=== PATIENT | female | born 1955 | race African-American/Black ===

== ENCOUNTER 2017-03-10 09:51 | Inpatient (IN) | payer MEDICARE, MEDICAID ==
[2017-03-10] MEDS ORDERED: Proparacaine 0.5% Opth 15 ML BOT ONE (10:12)
[2017-03-10] MEDS ORDERED: Magnesium Sulfate 2 GM/100 ML BAG ONE (10:13)
[2017-03-10] MEDS ORDERED: methylPREDNISolone Sod Succ/PF 125 MG/2 ML VIAL ONE (10:45)
[2017-03-10] MEDS ORDERED: Ketorolac Tromethamine 30 MG/ML VIAL ONE (10:45)
[2017-03-10] MEDS ORDERED: Ketorolac Tromethamine 30 MG/ML VIAL IVP PRN (15:20)
[2017-03-10] MEDS ORDERED: Artificial Tears 18 DROP/0.9 ML EA EYE PRN (15:20)
[2017-03-10] MEDS ORDERED: Diabetic Tussin 200 MG/10 ML UDCUP PO PRN (15:20)
[2017-03-10] MEDS ORDERED: Eucerin (Mineral Oil/Petrolatum,White) 30 gm Jar TOP PRN (15:20)
[2017-03-10] MEDS ORDERED: Sodium Chloride 0.65% Nasal 44 ML BOT EA NARE PRN (15:20)
[2017-03-10] MEDS ORDERED: Ondansetron HCl/PF 4 MG/2 ML Vial IVP PRN (15:20)
[2017-03-10] MEDS ORDERED: Ondansetron ODT 4 MG TAB PO PRN (15:20)
[2017-03-10] MEDS ORDERED: Zolpidem Tartrate 5 MG TAB PO PRN (15:20)
[2017-03-10] MEDS ORDERED: Loperamide HCl 2 MG CAP PO PRN (15:20)
[2017-03-10] MEDS ORDERED: Mag-Al 1200 mg/1200 mg/30 ML UDCUP PO PRN (15:20)
[2017-03-10] MEDS ORDERED: Loratadine 10 MG TAB PO PRN (15:20)
[2017-03-10] MEDS ORDERED: Senokot 8.6 MG TAB PO PRN (15:20)
[2017-03-10] MEDS ORDERED: Dextrose 50% Abboject 50 ML SYRINGE SLOW IVP PRN (15:26)
[2017-03-10] MEDS ORDERED: HumaLOG 300 UNITS/3 ML VIAL SC PRN ×2 (15:26)
[2017-03-10] MEDS ORDERED: Dextrose 5% in Water 1,000 ML IV PRN (15:26)
[2017-03-10 16:00] VITALS: BMI 28.5
--- NOTE | 2017-03-10 16:01 | HP ---
PRIMARY CARE PHYSICIAN: Rodger Mckeon M.D. REASON FOR ADMISSION: Intractable headache. HISTORY OF PRESENT ILLNESS: A 62-year-old -Honduran female with a history of hypertension an d glaucoma, who initially went to [facility] for evaluation of headache. The patient reports that her headache is diffuse in nature, 7/10 in intensity. The patient feels th at this headache is not the worst headache in her life. She does have a history of migraine and she feels as if migraine headache, but at home her home medication was not helping, and that is why she decided to come to emergency room. At this time, she reports more frontal headache which was start ed yesterday, normally it gets better within a day, but it was not improving and that is why she dec ided to come to emergency room for evaluation. She denies any fever. She denies any neck pain. Sh e denies any trauma. She denies any focal motor symptoms. She denies any blurred vision or diplopi a. She denies any photophobia. She denies any vomiting. 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 S he denies any projectile vomiting. At [facility], they tried to do lumbar puncture, but it was not successful and subsequent ly this patient was sent to our emergency room for evaluation. The patient had lumbar puncture done and subsequently she was admitted to medical floor. In the emergency room, the patient was given initially at [facility] with Benadryl, Najma n, IV fluid and in our emergency room, the patient was given Solu-Medrol 125 mg, Toradol 15 mg, IV f luid, and magnesium sulfate 2. When I saw this patient at that time, the patient was feeling little bit better. Her headache was improving, but it was not completely subsided. REVIEW OF SYSTEMS: The following complete review of systems was negative, unless otherwise mentione d in the HPI or below: Constitutional: Weight loss or gain, ability to conduct usual activities. Skin: Rash, itching. Eyes: Double vision, pain. ENT/Mouth: Nose bleeding, neck stiffness, pain, tenderness. Cardiovascular: Palpitations, dyspnea on exertion, orthopnea. Respiratory: Shortness of breath, wheezing, cough, hemoptysis, fever or night sweats. Gastrointestinal: Poor appetite, abdominal pain, heartburn, nausea, vomiting, constipation, or diar kameron. Genitourinary: Urgency, frequency, dysuria, nocturia. Musculoskeletal: Pain, swelling. Neurologic/Psychiatric: Anxiety, depression. Allergy/Immunologic: Skin rash, bleeding tendency. Please see my HPI for pertinent positives and negatives. All other review of system reviewed and ne gative except as mentioned in the HPI. PAST MEDICAL HISTORY: Hypertension, dyslipidemia, obesity, diabetes type 2, glaucoma, and osteoarth ritis. PAST SURGICAL HISTORY: , bilateral eye surgery, and hysterectomy. PAST PSYCHIATRIC HISTORY: Reviewed and negative. SOCIAL HISTORY: The patient denies any tobacco, alcohol or illicit drug abuse. She lives at home w ith family. FAMILY HISTORY: No strong family history of premature coronary artery disease, stroke or cancer. ALLERGIES: No known drug allergies. CURRENT HOME MEDICATIONS: Lisinopril 20 mg p.o. daily, Zocor 10 mg p.o. at bedtime, metoprolol 25 m g twice daily, and metformin 500 mg p.o. b.i.d. EMERGENCY ROOM COURSE: As mentioned above, the patient was given Benadryl, IV fluid, and Reglan at [facility] and the patient is given Solu-Medrol, Toradol, IV fluid, and magnesium sulfate in our emergency room. PHYSICAL EXAMINATION: VITAL SIGNS: Currently, blood pressure 124/62, pulse 69, respiratory rate 21, saturation 99% on perez m air, temperature 98.3, and weight 69.4 kilograms. GENERAL: The patient is currently alert and awake. She does have slurred speech which is baseline per the patient. HEENT: Head: Normocephalic and atraumatic. Eyes: Pupils round and reactive to light. Extraocula r muscles are intact. ENT: Oropharynx within normal limits. Moist mucous membranes. No oral lesi ons. No pharyngeal erythema, no exudate. NECK: Supple. Range of motion is normal. No meningeal signs of irritation. LUNGS: Clear to auscultation without any rhonchi or rales. CARDIAC: S1, S2 regular without any murmur. ABDOMEN: Soft, bowel sounds present, nontender, and nondistended. No organomegaly, no mass, no sup rapubic tenderness. BACK: Unremarkable, no CVA tenderness. EXTREMITIES: Upper extremity passive movements of all joints are normal. Lower extremities: No ed joey. Good peripheral pulsation. SKIN: No skin rash. HEMATOLOGICAL: No lymphadenopathy. NEUROLOGIC: The patient is alert and oriented x3. Cranial nerves II-XII intact. No focal neurolog ical deficit noted. No sensory deficit. Reflexes bilaterally symmetrical. No cerebellar sign. Th e patient does have baseline speech as per patient and family member. SKIN: No skin rash. PSYCHIATRIC: Normal affect. SIGNIFICANT LABS: 1. CBC: WBC 9.2, hemoglobin 12.5, platelet 249. BMP: Sodium 134, potassium 4.6, chloride 105, ca rbon dioxide 20, BUN 13, creatinine 0.99, glucose 141, calcium 9.5. 2. LFT: AST 16, ALT 14, alkaline phosphatase 72, albumin 4.3. 3. CT brain based on my review some mild cerebral atrophy, mild diffuse heterogeneity of white jennifer er consistent with chronic white matter ischemic changes, no acute intracranial finding noted. ASSESSMENT AND PLAN: 1. Intractable headache. I am suspecting more towards migraine headache. This patient does not crawley ve any focal neurological deficits. Her CT brain is negative. At this point in the emergency room lumbar puncture is obtained. I will send CSF study. We will try to control her headache with Torad ol 15 mg IV q.6 hourly, morphine 4 mg q.6 hourly p.r.n. If the patient's headache does not get bett er, then will consider doing MRI or Neurology evaluation at this point. We will hold on both for no w. 2. Diabetes type 2. We will continue with insulin as per sliding scale per protocol. Diabetic t will be given. 3. Hypertension. If blood pressure permits, then we will continue the patient's home dose of lisin opril, metoprolol 25 mg p.o. twice daily. 4. Dyslipidemia. We will continue with Zocor 10 mg p.o. at bedtime. 5. Obesity. Dietary education given, weight loss education given. 6. Diabetes type 2. We will continue insulin as per sliding scale protocol. Diabetic diet will be given and we will continue the insulin as per sliding scale protocol and we will also continue with metformin 500 mg p.o. b.i.d. 7. Deep venous thrombosis prophylaxis not needed because we are expecting discharge in 24 hours. 8. Gastrointestinal prophylaxis. Pepcid 20 mg p.o. b.i.d. 9. Code status: The patient is FULL CODE. DISPOSITION AND PLAN: Within 24 hours.
--- NOTE | 2017-03-10 16:29 | RAD ---
PROCEDURE: Fluoroscopic guided lumbar puncture. INDICATION: Sudden headache. Patient has negative noncontrast CT performed earlier today. Request is made for elio mbar puncture to rule out subtle subarachnoid hemorrhage. FINDINGS: Spinal canal is punctured at the L3 level under fluoroscopic guidance. Initial CSF is blood tinged. The CSF however, cleared with successful collection. CSF was collected in four successful test tubes for a total of approximately 5 to 6 mL with 1 to 2 mL in each test tube. PROCEDURE NOTE: Patient had signed op permit. Patient was placed prone on the fluoro table. Lower back was prepped a nd draped in a sterile manner. Local anesthesia was administered at L3 under fluoroscopic guidance. 22 gauge spinal needle was used to enter the spinal canal using a paramidline approach on the left w ith fluoroscopic guidance. The thecal sac was punctured with first attempt. CSF was recovered. The i nitial CSF was blood tinged; however, this did clear immediately with collection. Patient tolerated the procedure well and there were no problems or complications. POS: [facility]
[2017-03-10 16:45] LABS: CSF, Glucose 71 mg/dl (40-70)
[2017-03-10 17:24] LABS: Number Cells Counted-Fluids 100
[2017-03-10] MEDS: Sodium Chloride 0.9% 1,000 ML IV SCH (17:54)
[2017-03-10] MEDS: Simvastatin 20 MG TAB PO SCH (21:36)
[2017-03-10] MEDS: Famotidine 20 MG TAB PO SCH (21:37)
[2017-03-10] MEDS: Brinzolamide 1% Ophth Soln 10 ml Bottle L EYE SCH (21:37)
[2017-03-10] MEDS: Metoprolol Tartrate 25 MG TAB PO SCH (21:37)
[2017-03-10] MEDS: Brinzolamide 1% Ophth Soln 10 ml Bottle R EYE SCH (21:38)
[2017-03-11] MEDS: Sodium Chloride 0.9% 1,000 ML IV SCH ×2 (03:27→14:00)
[2017-03-11 06:25] LABS: #Lymphocytes 1.8 thou/uL (1.20-3.40); #Monocytes 0.5 thou/uL (0.11-0.59); #Neutrophils 10.8 thou/uL (1.40-6.50); %Basophils 0.3 % (0.0-1.0); %Eosinophils 0.1 % (0.0-10.0); %Lymphocytes 13.5 % (21.0-51.0); %Monocytes 3.7 % (0.0-10.0); Hematocrit 39.5 % (36.0-47.0); Mean Platelet Volume 8.2 fL (7.4-10.4); Red Blood Cell (RBC) Count 4.16 mill/uL (4.20-5.40); White Blood Cell (WBC) Count 13.1 thou/uL (4.8-10.8)
[2017-03-11 06:43] LABS: Anion Gap 15 mmol/L (10-20); BUN (Urea Nitrogen) 17 mg/dL (9.8-20.1); Calc. Creatinine Clearance 67 mL/min (70-130); Calcium 8.6 mg/dL (7.8-10.44); Carbon Dioxide 15 mmol/L (23-31); Chloride 109 mmol/L (98-107); Estimated GFR-MDRD 68
--- NOTE | 2017-03-11 07:21 | PDOC.PN ---
- Subjective Encounter Start Date: 03/11/17 Encounter Start Time: 07:14 Subjective: BAIG only slightly better -: No nausea -: No f/c - Objective Resuscitation Status: Resuscitation Status FULL:Full Resuscitation MAR Reviewed: Yes Vital Signs & Weight: Vital Signs (12 hours) Temp Pulse Resp BP Pulse Ox 03/11/17 03:49 98.5 F 72 24 H 120/58 L 98 03/10/17 23:18 97.9 F 80 20 109/53 L 99 03/10/17 20:00 97.9 F 88 16 03/10/17 19:29 97.9 F 88 16 111/52 L 96 Weight Weight 161 lb 4.8 oz I&O: 03/10/17 03/11/17 03/12/17 06:59 06:59 06:59 Intake Total 1700 Balance 1700 Result Diagrams: 03/11/17 06:05 03/11/17 06:05 Additional Labs: Accuchecks 03/11/17 03/10/17 03/10/17 05:22 20:33 16:25 POC Glucose 150 H 256 H 261 H Phys Exam - Physical Examination Constitutional: NAD HEENT: moist MMs, sclera anicteric Neck: no nodes, no JVD Respiratory: no wheezing, no rales, wheezing present Cardiovascular: RRR, no significant murmur Gastrointestinal: soft, non-tender, positive bowel sounds Lymphatic: no nodes Psychiatric: normal affect Skin: no rash, normal turgor, cap refill <2 seconds Dx/Plan (1) Intractable headache Code(s): R51 - HEADACHE Status: Acute (2) Type 2 diabetes mellitus Status: Acute - Plan Intractable BAIG * CSF consistent with aseptic meningitis * RBC count in CSF is elevated (?SAH vs. Traumatic tap) - will consult neurology for input * prn analgesics * trend WBC in AM DM2 * SSI * f/u accu checks
[2017-03-11] MEDS: Acetaminophen 325 MG TAB PO PRN (08:59)
[2017-03-11] MEDS: Metoprolol Tartrate 25 MG TAB PO SCH ×2 (08:59→20:44)
[2017-03-11] MEDS: Brinzolamide 1% Ophth Soln 10 ml Bottle L EYE SCH ×3 (09:00→20:41)
[2017-03-11] MEDS: Lisinopril 20 MG TAB PO SCH (09:00)
[2017-03-11] MEDS: Brinzolamide 1% Ophth Soln 10 ml Bottle R EYE SCH ×3 (09:00→20:50)
[2017-03-11] MEDS: Famotidine 20 MG TAB PO SCH ×2 (09:00→20:44)
[2017-03-11] MEDS: HYDROcodone/Acetaminophen 10/325 mg Tablet PO PRN (20:44)
[2017-03-11] MEDS: Simvastatin 20 MG TAB PO SCH (20:44)
[2017-03-11] MEDS: Brimonidine Tartrate 0.2% Ophth Soln 5 ml Bottle R EYE SCH (20:48)
[2017-03-11] MEDS: Timolol 0.5% Ophth Soln 5 ml Bottle R EYE SCH (22:04)
[2017-03-11] MEDS: Latanoprost 0.005% Ophth Soln 2.5 ml Bottle EA EYE SCH (22:07)
--- NOTE | 2017-03-12 00:51 | CON ---
DATE OF CONSULTATION: 03/11/2017 REFERRING PROVIDER: Lan Mcmillan M.D. REASON FOR CONSULTATION: Intractable headache, rule out subarachnoid hemorrhage versus traumatic ta p. HISTORY OF PRESENT ILLNESS: Ms. Aviles is a pleasant 62-year-old -Syrian female who has be en consulted for evaluation of intractable headaches, gait imbalance, and to rule out subarachnoid h emorrhage versus traumatic tap. History is obtained from the patient who is somewhat of a poor hist orian. The patient reports that she has a history of migraines for many years; however, she has bee n migraine headache free for approximately 2-3 years. She reports that in November she started having s evere intractable headache. This was located in the bifrontal region, radiating to the top and side of the head and pain was then radiating down to both sides of the neck. She was having difficulty with moving her neck [id number] as it would exacerbate the pain. This pain was sharp in quality a nd severe in intensity. According to her, she had presented to the [facility] and was celestine renee with the pain medication and then she was discharged to home on pain medication. She reports th at she never got rid of the headache. She continued to have headaches 3-4 times per week. She deci ded to present to the [facility] as this headache was intensifying in severity and wa s unrelenting. She was also having neck stiffness and neck pain with her headaches. She denies hav ing photophobia, phonophobia, nausea, vomiting, lightheadedness, or dizziness. She does complain of having difficulty with the gait imbalance over the past 2-3 years that has gradually gotten worse. She has difficulty with maintaining her balance and tends to fall down frequently. She complains o f having numbness and tingling in right hand that tends to be intermittent and there are no exacerba ting or relieving factors. The does report that she had a fever, although he did not measur e the temperature 2 days prior to the admission. I am being asked to evaluate this patient for the intractable headaches as well as a lumbar puncture showing elevated RBC, which there is a concern fo r subarachnoid hemorrhage versus traumatic tap. PAST MEDICAL HISTORY: Significant for hypertension, dyslipidemia, diabetes, glaucoma, and osteoarth ritis. PAST SURGICAL HISTORY: Significant for , bilateral eye surgery, and hysterectomy. SOCIAL HISTORY: She does not smoke, drink alcohol, or uses illicit drugs. She lives at home with h er family. FAMILY HISTORY: None significant. CURRENT MEDICATIONS: Please review MAR. ALLERGIES: No known drug allergies. REVIEW OF SYSTEMS: As mentioned in the HPI, otherwise negative. PHYSICAL EXAMINATION: VITAL SIGNS: Blood pressure of 138/72, pulse of 72, temperature of 97.9, respirations of 20, O2 sat s of 96% on room air. GENERAL: Well-developed, well-nourished -Syrian female, in no apparent distress. RESPIRATORY: Clear to auscultation bilaterally. CARDIOVASCULAR: Regular rate and rhythm. NEUROLOGIC: Mental status: The patient is awake, alert, oriented x3. Speech and language: Fluent speech. Cranial nerves: Right pupil is 3 mm and reactive. Left pupil is 4-5 mm, nonreactive. Sh e has a left exotropia. Extraocular muscles are intact. No nystagmus is noted. Face appears symme tric. Tongue and uvula are midline. Motor exam showed increased tone of both upper and lower extre mities with somewhat spastic catch at the wrist and elbow on both sides. Strength in the both upper extremities is 4/5, strength in both lower extremities is 4/5 proximally and 5/5 distally. Sensory : Diminished sensation in both upper and lower extremities in distal to proximal gradient. Deep te ndon reflexes, 3+ reflexes in both upper and lower extremities. Babinski: Plantar responses equivo mansoor bilaterally. Mirlande's signs are positive bilaterally. Gait and Romberg could not be tested. Coordination intact to lospkx-hhke-[id number] and finger tapping bilaterally. LABORATORY DATA: Reviewed, which included CBC, BMP, CSF, WBC, RBC, glucose, and protein. The WBC o f 13.1. Sodium of 135, glucose of 183. CSF WBC of 9.5, CSF RBC of 765, CSF glucose of 71, and CSF protein of 79, otherwise unremarkable. CSF cytology is negative. IMAGING STUDIES: CT head without contrast done on 03/10/2017 was reviewed, which showed no acute in tracranial abnormality. IMPRESSION: 1. Meningitis. 2. Cervical myelopathy. 3. Intractable headache, due to meningitis. 4. Gait imbalance, due to cervical myelopathy. Mr. Aviles is a pleasant 62-year-old -Syrian female who presented with the intractable head ache since November of this year. On exam, she is noted to have increased tone and spasticity of both u pper and lower extremities with brisk reflexes in both upper and lower extremities and weakness pres ent in both upper and lower extremities proximally than distally. I have reviewed her CSF results w hich showed 765 RBC and 95 WBC. This would be consistent with patient with the meningitis. Her RBC cannot account for elevated WBC. Elevation of RBC is likely not related to subarachnoid hemorrhage , it is probably related to traumatic tap. I will obtain MRI brain and C-spine with and without con trast to rule out underlying pathology for episodes of weakness and gait imbalance. I would recomme nd starting her on antibiotics with Rocephin, vancomycin, and acyclovir until lab cultures are negat sara and HSV PCR is negative. I would also recommend consulting Infectious Diseases for their furthe r recommendations. I will be out of town this weekend, so the on-call neurologist can be called if there is any question or concern.
[2017-03-12] MEDS: Sodium Chloride 0.9% 1,000 ML IV SCH (04:34)
[2017-03-12] MEDS: HYDROcodone/Acetaminophen 10/325 mg Tablet PO PRN ×2 (04:38→19:53)
[2017-03-12 05:30] LABS: #Basophils 0.1 thou/uL (0.0-0.2); #Eosinphils 0.1 thou/uL (0.0-0.7); #Lymphocytes 4.9 thou/uL (1.20-3.40); #Monocytes 0.7 thou/uL (0.11-0.59); #Neutrophils 6.7 thou/uL (1.40-6.50); %Basophils 0.7 % (0.0-1.0); %Eosinophils 1.1 % (0.0-10.0); %Lymphocytes 39.1 % (21.0-51.0); %Monocytes 5.5 % (0.0-10.0); Hematocrit 35.4 % (36.0-47.0); Mean Platelet Volume 8.3 fL (7.4-10.4); Red Blood Cell (RBC) Count 3.71 mill/uL (4.20-5.40); White Blood Cell (WBC) Count 12.5 thou/uL (4.8-10.8)
[2017-03-12 05:46] LABS: Anion Gap 11 mmol/L (10-20); BUN (Urea Nitrogen) 16 mg/dL (9.8-20.1); Calc. Creatinine Clearance 77 mL/min (70-130); Calcium 8.3 mg/dL (7.8-10.44); Carbon Dioxide 17 mmol/L (23-31); Chloride 113 mmol/L (98-107); Estimated GFR-MDRD 81
--- NOTE | 2017-03-12 07:17 | PDOC.PN ---
- Subjective Encounter Start Date: 03/12/17 Encounter Start Time: 07:15 Subjective: No overnight issues -: BAIG controlled -: No f/c - Objective Resuscitation Status: Resuscitation Status FULL:Full Resuscitation MAR Reviewed: Yes Vital Signs & Weight: Vital Signs (12 hours) Temp Pulse Resp BP BP Pulse Ox 03/12/17 03:36 97.9 F 66 16 106/53 L 99 03/11/17 23:37 97.8 F 70 16 97/50 L 100 03/11/17 22:04 72 03/11/17 20:45 97.8 F 72 16 03/11/17 20:00 97.8 F 72 16 121/57 L 100 Weight Weight 161 lb 4.8 oz I&O: 03/11/17 03/12/17 03/13/17 06:59 06:59 06:59 Intake Total 1700 2449 Balance 1700 2449 Result Diagrams: 03/12/17 04:53 03/12/17 04:53 Additional Labs: Accuchecks 03/12/17 03/11/17 03/11/17 04:49 20:26 16:32 POC Glucose 140 H 178 H 117 H 03/11/17 10:35 POC Glucose 166 H Phys Exam - Physical Examination Constitutional: NAD HEENT: moist MMs, sclera anicteric Neck: no nodes, no JVD Respiratory: no wheezing, no rales, no rhonchi, clear to auscultation bilateral Cardiovascular: RRR, no significant murmur Gastrointestinal: soft, non-tender, positive bowel sounds Psychiatric: normal affect Skin: no rash, normal turgor Dx/Plan (1) Intractable headache Code(s): R51 - HEADACHE Status: Acute (2) Type 2 diabetes mellitus Status: Acute - Plan Intractable BAIG * CSF consistent with aseptic meningitis * appreciate neuro input - start Vanco, Ceftriaxone and Acyclovir now (will consult ID, per neuro request) * prn analgesics * trend WBC in AM #Gait imbalance and weakness * appreciate neuro input - f/u MRI brain and c-spine * consult PT/OT DM2 * SSI * f/u accu checks
[2017-03-12] MEDS ORDERED: Vancomycin HCl 1 GM in Premix Bag 1 BAG IVPB SCH (09:00)
[2017-03-12] MEDS: Famotidine 20 MG TAB PO SCH ×2 (09:02→20:20)
[2017-03-12] MEDS: Lisinopril 20 MG TAB PO SCH (09:02)
[2017-03-12] MEDS: Metoprolol Tartrate 25 MG TAB PO SCH ×2 (09:02→20:19)
[2017-03-12] MEDS: Vancomycin HCl 1 GM in Premix Bag 1 BAG IVPB SCH (09:03)
[2017-03-12] MEDS: cefTRIAXone\\ROCEPHIN 2 GM in Sodium Chloride 0.9% 100 ML IVPB SCH ×2 (09:03→19:42)
[2017-03-12] MEDS: Brimonidine Tartrate 0.2% Ophth Soln 5 ml Bottle R EYE SCH ×2 (09:05→21:13)
[2017-03-12] MEDS: Brinzolamide 1% Ophth Soln 10 ml Bottle L EYE SCH ×3 (09:05→20:21)
[2017-03-12] MEDS: Timolol 0.5% Ophth Soln 5 ml Bottle R EYE SCH ×2 (09:06→21:12)
[2017-03-12] MEDS: Brinzolamide 1% Ophth Soln 10 ml Bottle R EYE SCH ×3 (09:14→20:21)
[2017-03-12] MEDS: ACYCLOVIR SODIUM IVPB SCH ×2 (11:18→17:00)
[2017-03-12] MEDS: SODIUM CHLORIDE IVPB SCH ×2 (11:18→17:00)
[2017-03-12] MEDS: ADMIXTURE FEE IVPB SCH ×2 (11:18→17:00)
[2017-03-12] MEDS: Acetaminophen 325 MG TAB PO PRN (13:33)
--- NOTE | 2017-03-12 17:31 | MRI ---
EXAM: CERVICAL SPINE MRI WITH AND WITHOUT CONTRAST: 03/12/17 HISTORY: Neck stiffness. Intractable headache. Meningitis. COMPARISON: None. TECHNIQUE: Cervical spine MRI is performed with and without intravenous gadolinium administration. Multisequent ial, multiplanar imaging is performed. FINDINGS: There is appropriate T1 marrow signal intensity of the cervical vertebra. Cervical spine vertebral b ashley height is maintained. There is no fracture. On the postcontrast images there is no abnormal enha ncement of the vertebral bodies. There is no significant STIR hyperintensity to suggest vertebral juan alberto dy edema. There is mild prominence of the ventricular system, incompletely evaluated. The visualized brain stem, cervicomedullary junction, cervical cord and the upper thoracic cord has a normal size and signal intensity. There is no obvious anterior or posterior dural enhancement. No pathologic enhancement. C2-C3: No significant disc osteophyte complex. No significant central canal stenosis. Neural foramin a are patent. C3-C4: No significant disc osteophyte complex. No significant central canal stenosis. Neural foramin a are patent. C4-C5: Broad based disc osteophyte complex without significant central canal stenosis. Right neural foramen is patent. Mild left foraminal narrowing due to degenerative change of the uncovertebral sarah nt. C5-C6: There is a left paracentral disc osteophyte complex that abuts the thecal sac and deforms the left hemicord. Mild central canal stenosis. No T2 hyperintensity of the cord. Bilaterally, neural f oramina are patent. C6-C7: There is a broad based disc osteophyte complex with a right paracentral component. Mild tian ening of the right aspect of the thecal sac. No significant mass effect upon the cord. No T2 hyperin tensity in the cord. Mild right foraminal narrowing due to degenerative change of the uncovertebral joint. Mild left foraminal narrowing due to degenerative change of the uncovertebral joint. C7-T1: There is a left paracentral disc osteophyte complex. No high grade central canal stenosis. Ne ural foramina are patent. IMPRESSION: 1. Prominence of ventricular system, incompletely evaluated. Correlation made with previous CT does not demonstrate any ventriculomegaly. If there is concern, dedicated brain MRI can be performed . 2. No pathologic enhancement of the visualized spinal cord. 3. Degenerative changes of the cervical spine as detailed above. POS: [facility]
--- NOTE | 2017-03-12 18:57 | MRI ---
EXAM: BRAIN MRI WITH AND WITHOUT CONTRAST 03/12/17 HISTORY: Intractable headache. Stiff neck. Meningitis. COMPARISON: None. CORRELATION: Noncontrast head CT 03/10/17. TECHNIQUE: Brain MRI is performed with and without intravenous gadolinium administration. Multisequential, mult iplanar imaging is performed. FINDINGS: No hemorrhage on the axial gradient echo sequence. No parenchymal mass, mass effect, or midline shift. Brain volume is age appropriate. Cortical metz w emmy matter differentiation is preserved. Ventricles and sulci are patent and symmetric. Previously suggested prominence of ventricular system of the cervical spine MRI does not have a corresponding d emonstration on the current exam. There is no evidence of hydrocephalus. Central arterial flow voids are maintained. No restricted diffusion. There are white matter hyperintensities on the axial FLAIR sequence. Adequate aeration of the sinuse s and mastoid air cells. No evidence of parenchymal or dural enhancement. IMPRESSION: 1. No pathologic enhancement. 2. Absent restricted diffusion. No acute infarct. POS: [facility]
[2017-03-12] MEDS: Simvastatin 20 MG TAB PO SCH (20:19)
[2017-03-12] MEDS: Latanoprost 0.005% Ophth Soln 2.5 ml Bottle EA EYE SCH (20:45)
[2017-03-13] MEDS: ADMIXTURE FEE IVPB SCH ×3 (02:10→18:11)
[2017-03-13] MEDS: ACYCLOVIR SODIUM IVPB SCH ×3 (02:10→18:11)
[2017-03-13] MEDS: SODIUM CHLORIDE IVPB SCH ×3 (02:10→18:11)
[2017-03-13] MEDS: Sodium Chloride 0.9% 1,000 ML IV SCH ×2 (02:22→12:01)
[2017-03-13 06:09] LABS: #Basophils 0.1 thou/uL (0.0-0.2); #Eosinphils 0.3 thou/uL (0.0-0.7); #Lymphocytes 3.4 thou/uL (1.20-3.40); #Monocytes 0.7 thou/uL (0.11-0.59); %Basophils 1.2 % (0.0-1.0); %Eosinophils 3.3 % (0.0-10.0); %Lymphocytes 40.5 % (21.0-51.0); %Monocytes 7.8 % (0.0-10.0); Mean Platelet Volume 8.7 fL (7.4-10.4); Red Blood Cell (RBC) Count 3.63 mill/uL (4.20-5.40); White Blood Cell (WBC) Count 8.4 thou/uL (4.8-10.8)
[2017-03-13 06:43] LABS: Anion Gap 11 mmol/L (10-20); BUN (Urea Nitrogen) 12 mg/dL (9.8-20.1); Calc. Creatinine Clearance 77 mL/min (70-130); Calcium 8.5 mg/dL (7.8-10.44); Carbon Dioxide 19 mmol/L (23-31); Chloride 112 mmol/L (98-107); Estimated GFR-MDRD 81
[2017-03-13] MEDS: cefTRIAXone\\ROCEPHIN 2 GM in Sodium Chloride 0.9% 100 ML IVPB SCH ×2 (07:46→20:34)
[2017-03-13] MEDS: Famotidine 20 MG TAB PO SCH ×2 (07:47→21:44)
[2017-03-13] MEDS: Metoprolol Tartrate 25 MG TAB PO SCH ×2 (07:47→21:44)
[2017-03-13] MEDS: Lisinopril 20 MG TAB PO SCH (07:47)
[2017-03-13] MEDS: Brinzolamide 1% Ophth Soln 10 ml Bottle L EYE SCH ×3 (07:51→21:54)
[2017-03-13] MEDS: Timolol 0.5% Ophth Soln 5 ml Bottle R EYE SCH ×2 (07:52→22:10)
[2017-03-13] MEDS: Brinzolamide 1% Ophth Soln 10 ml Bottle R EYE SCH ×3 (07:52→21:54)
[2017-03-13] MEDS: Vancomycin HCl 1 GM in Premix Bag 1 BAG IVPB SCH (09:15)
[2017-03-13] MEDS: Brimonidine Tartrate 0.2% Ophth Soln 5 ml Bottle R EYE SCH ×2 (09:20→22:05)
[2017-03-13] MEDS: Milk Of Magnesia 30 ML UDCUP PO PRN (09:36)
--- NOTE | 2017-03-13 10:21 | PDOC.PN ---
- Subjective Encounter Start Date: 03/13/17 Encounter Start Time: 10:20 Patient seen and examined, states she has some pain in her abdomen and also her neck, no other issues. - Objective Resuscitation Status: Resuscitation Status FULL:Full Resuscitation Vital Signs & Weight: Vital Signs (12 hours) Temp Pulse Resp BP BP Pulse Ox 03/13/17 07:59 97.6 F 70 16 03/13/17 07:52 70 152/69 H 03/13/17 07:47 152/69 H 03/13/17 07:34 97.6 F 70 20 152/69 H 100 Weight Weight 161 lb 4.8 oz I&O: 03/12/17 03/13/17 03/14/17 06:59 06:59 06:59 Intake Total 2449 2900 Balance 2449 2900 Result Diagrams: 03/13/17 05:23 03/13/17 05:23 Additional Labs: Accuchecks 03/13/17 03/12/17 03/12/17 05:14 20:00 17:02 POC Glucose 114 H 152 H 135 H 03/12/17 12:35 POC Glucose 151 H Phys Exam - Physical Examination Constitutional: NAD slurred speech HEENT: PERRLA, moist MMs Neck: no nodes, no JVD Respiratory: no wheezing, no rales Cardiovascular: RRR, no significant murmur Gastrointestinal: soft, non-tender, positive bowel sounds rotund, distended Musculoskeletal: pulses present, edema present (trace) Neurological: normal sensation Psychiatric: normal affect, A&O x 3 Skin: no rash, normal turgor Dx/Plan (1) Intractable headache Code(s): R51 - HEADACHE Status: Acute (2) Type 2 diabetes mellitus Status: Acute (3) Antalgic gait Code(s): R26.89 - OTHER ABNORMALITIES OF GAIT AND MOBILITY Status: Acute (4) Meningitis Code(s): G03.9 - MENINGITIS, UNSPECIFIED Status: Acute - Plan * Cont abx * ID and neurology following * patient continues to have slurred speech, states she feels a little better, still has pain in her neck * will get KUB given abdominal pain * labs in AM * case and plan d/w patient at length, she understands and agrees with this plan
--- NOTE | 2017-03-13 16:21 | RAD ---
AP VIEW ABDOMEN 03/13/17 HISTORY: Abdominal pain. Mild distention. AP view abdomen is obtained. The abdominal gas pattern is nonspecific. No evidence of obstruction or ileus seen. No dilated loops of bowel seen. IMPRESSION: Unremarkable AP view abdomen. POS: [facility]
--- NOTE | 2017-03-13 20:04 | CON ---
DATE OF CONSULTATION: 03/13/2017 HISTORY OF PRESENT ILLNESS: A 62-year-old patient, who has a history of hypertension and glaucoma w ith left eye blindness, as well as migraine headaches. According to the patient, she had experience d some remission in the headaches until November of this year when she developed recrudescence of the he adaches, and the day before admission went to [facility] because of the intensity of the headaches. There a spinal tap was attempted, which was not successful, then she was referred to [facility] and admitted. Here, she had a spinal tap under fluoroscopy and some abnormalities were no renee and we were asked to evaluate the patient. Currently, Ms. Aviles is awake. 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 Right now, she has moderate headaches, she grades at 5/10. Again, she has blindness in the left eye. No sore throat, odynophagia, dysphagia, some neck pain. No shortness of breath, cough or sputum produc tion, no chest pain, no abdominal pain or diarrhea. No genitourinary symptoms. No joint symptoms o ther than chronic knee pains. PAST MEDICAL HISTORY: Hypertension; dyslipidemia; type 2 diabetes; glaucoma with blindness, left ey e; migraine headaches and osteoarthritis. PAST SURGICAL HISTORY: , eye surgery, and hysterectomy. SOCIAL HISTORY: Lives in [place]. Never a smoker. . FAMILY HISTORY: Noncontributory. ALLERGIES: None. CURRENT MEDICATIONS: Tylenol, [place], acyclovir, famotidine, brinzolamide, ceftriaxone, insulin, met formin, and vancomycin. PHYSICAL EXAMINATION: VITAL SIGNS: T-max 98.5, blood pressure 150/69, pulse 70, respirations 16, O2 sat 100%. GENERAL: She is awake and alert. SKIN: Normal. There is no lymphadenopathy. HEENT: Ocular movements are disconjugate. Left pupil is about 4 mm, right pupil is reactive and 2 mm. Oral cavity with no teeth. No [place] teeth left. Oral mucosa is normal. NECK: Supple. LUNGS: With symmetric clear breath sounds. HEART: S1, S2, regular rate. No S3 or S4. ABDOMEN: Soft, not distended or tender. No ascites. No bladder distention. EXTREMITIES: No joint inflammatory activity noted. Pulses are 1+ in dorsalis pedis. Moves all ext remities equally. NEUROLOGIC: She has that speech impairment with dysarthria, which is congenital, but otherwise orie ntation and recollection appears to be intact. LABORATORY DATA: White cell count 13,000, down to 8.4; hemoglobin 11; platelets 247 with initially 82% neutrophils, now 47%. Sodium 138, admit sodium 135; creatinine 1.0; glucose 166. CSF with 95 w bc's and 765 rbc's, 13% neutrophils, 55% lymphocytes, glucose 71, and protein 79. The HSV and PCR i s pending. VDRL and CSF has been submitted as well. ASSESSMENT: Hypertension, chronic migraines with exacerbation since November, admitted with worsening h eadaches. Initial spinal tap was unsuccessful and now she had a second one under fluoroscopy with a bnormalities noted above. DISCUSSION: Differential diagnoses includes aseptic meningitis, either viral or other etiology incl uding autoimmune versus plain migraines with an abnormal CSF due to the accidental puncture of venou s plexuses around the spinal cord with contamination of the sample. We will submit the HIV, syphili s serology, wait on HSV and PCR results to determine the need for continuation of acyclovir. Add en terovirus and West Nile if not submitted yet to the panel. Check NAHUM, C-reactive protein. Other po ssibility would be sarcoidosis, but no inflammatory process seen on MRI.
[2017-03-13] MEDS: Simvastatin 20 MG TAB PO SCH (21:44)
[2017-03-13] MEDS: Latanoprost 0.005% Ophth Soln 2.5 ml Bottle EA EYE SCH (21:50)
[2017-03-13] MEDS: HYDROcodone/Acetaminophen 10/325 mg Tablet PO PRN (22:12)
[2017-03-14] MEDS: Sodium Chloride 0.9% 1,000 ML IV SCH ×3 (00:39→23:22)
[2017-03-14] MEDS: SODIUM CHLORIDE IVPB SCH ×4 (03:27→19:52)
[2017-03-14] MEDS: ACYCLOVIR SODIUM IVPB SCH ×4 (03:27→19:52)
[2017-03-14] MEDS: ADMIXTURE FEE IVPB SCH ×4 (03:27→19:52)
[2017-03-14] MEDS: HYDROcodone/Acetaminophen 10/325 mg Tablet PO PRN ×2 (05:10→18:13)
[2017-03-14 06:04] LABS: #Basophils 0.1 thou/uL (0.0-0.2); #Eosinphils 0.2 thou/uL (0.0-0.7); #Lymphocytes 3.1 thou/uL (1.20-3.40); #Monocytes 0.7 thou/uL (0.11-0.59); #Neutrophils 3.8 thou/uL (1.40-6.50); %Basophils 0.8 % (0.0-1.0); %Eosinophils 2.7 % (0.0-10.0); %Lymphocytes 39.6 % (21.0-51.0); %Monocytes 8.6 % (0.0-10.0); Hematocrit 37.2 % (36.0-47.0); Mean Platelet Volume 7.9 fL (7.4-10.4); Red Blood Cell (RBC) Count 3.92 mill/uL (4.20-5.40); White Blood Cell (WBC) Count 7.9 thou/uL (4.8-10.8)
[2017-03-14 06:08] LABS: Anion Gap 11 mmol/L (10-20); BUN (Urea Nitrogen) 10 mg/dL (9.8-20.1); Calc. Creatinine Clearance 81 mL/min (70-130); Calcium 8.8 mg/dL (7.8-10.44); Carbon Dioxide 21 mmol/L (23-31); Chloride 108 mmol/L (98-107); Estimated GFR-MDRD 85
[2017-03-14] MEDS: cefTRIAXone\\ROCEPHIN 2 GM in Sodium Chloride 0.9% 100 ML IVPB SCH (07:54)
[2017-03-14] MEDS: Lisinopril 20 MG TAB PO SCH (08:05)
[2017-03-14] MEDS: Famotidine 20 MG TAB PO SCH ×2 (08:05→20:41)
[2017-03-14] MEDS: Metoprolol Tartrate 25 MG TAB PO SCH ×2 (08:05→20:41)
[2017-03-14] MEDS: Brinzolamide 1% Ophth Soln 10 ml Bottle L EYE SCH ×3 (08:09→20:55)
[2017-03-14] MEDS: Timolol 0.5% Ophth Soln 5 ml Bottle R EYE SCH ×2 (08:09→21:03)
[2017-03-14] MEDS: Brinzolamide 1% Ophth Soln 10 ml Bottle R EYE SCH ×3 (08:09→20:57)
[2017-03-14] MEDS: Brimonidine Tartrate 0.2% Ophth Soln 5 ml Bottle R EYE SCH ×2 (08:54→20:39)
[2017-03-14 09:11] LABS: Vancomycin, Trough 6.3 ug/mL
[2017-03-14] MEDS ORDERED: VANCOMYCIN IVPB PRN (09:17)
[2017-03-14] MEDS: Vancomycin HCl 1 GM in Premix Bag 1 BAG IVPB SCH ×3 (10:11→22:10)
--- NOTE | 2017-03-14 11:14 | PDOC.PN ---
- Subjective Encounter Start Date: 03/14/17 Encounter Start Time: 11:12 Patient seen and examined, states she still has neck pain, no other new issues in last 24 hours. - Objective Resuscitation Status: Resuscitation Status FULL:Full Resuscitation Vital Signs & Weight: Vital Signs (12 hours) Temp Pulse Resp BP BP 03/14/17 08:09 143/78 H 03/14/17 08:05 143/78 H 03/14/17 08:00 98.1 F 67 16 143/78 H Weight Weight 161 lb 4.8 oz I&O: 03/13/17 03/14/17 03/15/17 06:59 06:59 06:59 Intake Total 2900 2590 Balance 2900 2590 Result Diagrams: 03/14/17 05:45 03/14/17 05:45 Additional Labs: Accuchecks 03/14/17 03/13/17 03/13/17 05:03 21:52 16:15 POC Glucose 100 85 92 03/13/17 11:08 POC Glucose 144 H Phys Exam - Physical Examination Constitutional: NAD laying in bed HEENT: PERRLA, moist MMs Neck: no nodes, no JVD chin to chest illicits pain in her neck Respiratory: no wheezing, no rales Cardiovascular: RRR, no significant murmur Gastrointestinal: soft, non-tender, no distention Musculoskeletal: pulses present, edema present (trace) Neurological: non-focal, normal sensation difficult to understand speech Psychiatric: normal affect Deviation from normal: AAO to person Skin: no rash, normal turgor Dx/Plan (1) Intractable headache Code(s): R51 - HEADACHE Status: Acute (2) Type 2 diabetes mellitus Status: Acute (3) Antalgic gait Code(s): R26.89 - OTHER ABNORMALITIES OF GAIT AND MOBILITY Status: Acute (4) Meningitis Code(s): G03.9 - MENINGITIS, UNSPECIFIED Status: Acute - Plan * Continue current work up * ID w/u pending * cont abx for meningitis, cultures negative so far * neurological input appreciated * pain control
[2017-03-14] MEDS: Milk Of Magnesia 30 ML UDCUP PO PRN (18:08)
[2017-03-14] MEDS ORDERED: cefTRIAXone\\ROCEPHIN 2 GM in Sodium Chloride 0.9% 100 ML IVPB SCH (21:00)
[2017-03-14] MEDS: Latanoprost 0.005% Ophth Soln 2.5 ml Bottle EA EYE SCH (21:03)
[2017-03-14] MEDS: Simvastatin 20 MG TAB PO SCH (21:04)
[2017-03-15] MEDS: ACYCLOVIR SODIUM IVPB SCH (04:05)
[2017-03-15] MEDS: ADMIXTURE FEE IVPB SCH (04:05)
[2017-03-15] MEDS: SODIUM CHLORIDE IVPB SCH (04:05)
[2017-03-15 05:27] LABS: #Basophils 0.1 thou/uL (0.0-0.2); #Eosinphils 0.2 thou/uL (0.0-0.7); #Lymphocytes 2.9 thou/uL (1.20-3.40); #Monocytes 0.6 thou/uL (0.11-0.59); #Neutrophils 3.6 thou/uL (1.40-6.50); %Basophils 0.7 % (0.0-1.0); %Eosinophils 2.7 % (0.0-10.0); %Lymphocytes 39.7 % (21.0-51.0); %Monocytes 8.1 % (0.0-10.0); Hematocrit 35.1 % (36.0-47.0); Mean Platelet Volume 7.8 fL (7.4-10.4); White Blood Cell (WBC) Count 7.3 thou/uL (4.8-10.8)
[2017-03-15 05:45] LABS: Anion Gap 11 mmol/L (10-20); BUN (Urea Nitrogen) 10 mg/dL (9.8-20.1); Calc. Creatinine Clearance 80 mL/min (70-130); Calcium 8.7 mg/dL (7.8-10.44); Carbon Dioxide 22 mmol/L (23-31); Chloride 108 mmol/L (98-107); Estimated GFR-MDRD 84
[2017-03-15] MEDS: Lisinopril 20 MG TAB PO SCH (09:07)
[2017-03-15] MEDS: Brimonidine Tartrate 0.2% Ophth Soln 5 ml Bottle R EYE SCH (09:07)
[2017-03-15] MEDS: Metoprolol Tartrate 25 MG TAB PO SCH (09:07)
[2017-03-15] MEDS: Famotidine 20 MG TAB PO SCH (09:07)
[2017-03-15] MEDS: Brinzolamide 1% Ophth Soln 10 ml Bottle L EYE SCH (09:08)
[2017-03-15] MEDS: Brinzolamide 1% Ophth Soln 10 ml Bottle R EYE SCH (09:08)
[2017-03-15] MEDS: Timolol 0.5% Ophth Soln 5 ml Bottle R EYE SCH (09:09)
[2017-03-15] MEDS: HYDROcodone/Acetaminophen 10/325 mg Tablet PO PRN (11:51)
[2017-03-15 11:55] VITALS: BP 140/69; TEMP 98
--- NOTE | 2017-03-15 14:41 | DIS ---
DATE OF ADMISSION: 03/10/2017 DATE OF DISCHARGE: 03/15/2017 DISCHARGE DIAGNOSES: 1. Nonbacterial meningitis. 2. Legal blindness, chronic. 3. Intractable headache secondary to #1. 4. Diabetes mellitus type 2. 5. Antalgic gait, chronic. CONSULTATIONS: 1. Neurology, Kaylee Mercado M.D. 2. Infectious Disease, Roby Gipson M.D. PROCEDURE PERFORMED: Lumbar puncture under fluoroscopy on 03/10. HISTORY AND PHYSICAL: Ms. Aviles is a pleasant 62-year-old -Indian female with a history o f legal blindness, who presents to the Emergency Department for intractable headache. In [facility], she had a fairly normal lab workup; however, lumbar puncture did show 90+ white bloo d cells, more than half of which were lymphocytic. Of note, 30% of the cells were nonleukocytotic, extrapolation led to a lymphocytosis of approximately 70%. She was admitted and started on antibiot ics. HOSPITAL COURSE: The patient was started on vancomycin, ceftriaxone and acyclovir. Neurology was c onsulted due to antalgic gait and an MRI was obtained that was normal. Overnight on 03/10 and 03/11 , she did well. She continued to have headache that was responsive somewhat to oral pain medication s. No nausea, no fevers or chills or other complaints. She was seen by Neurology that evening, who felt that she had a true possible infectious meningitis. An MRI was done that showed no evidence o f meningeal enhancement, no temporal lobe enhancement, no abscesses. Overnight on 03/11 and 03/12, she remained stable. She continued to have headache, again responsive to oral pain medications. She is on antibiotics and her cultures remained negative. PT and OT was consulted and the patient was continued on the antiinfectives. On 03/13, Infectious Disease was consulted. Dr. Gipson came and evaluated the patient that afternoon . He recommended HIV and syphilis serology and also wanted to wait on HSV and PCR results to determ ine the need to continue acyclovir. An enterovirus and West Nile virus were also submitted. Throug h 03/14, the patient remained afebrile. Headache waxed and waned. Off the medicines, it got back t o as bad as it had been on on admission, but with medicines is more tolerable. Cultures remained ne gative and she remained on antiinfectives. Today, her syphilis and HIV serology came back negative. Other serologies are pending. She is afeb rile and cultures remained negative. I have stopped her anti-infectives and discharged her if okay with Dr. Gipson. DISCHARGE CONDITION: Good. DISPOSITION: Discharged home via private vehicle. DISCHARGE FOLLOWUP: Home health care to see the patient for PT and OT. FOLLOWUP APPOINTMENTS 1. PCP within a week. 2. Dr. Gipson with his clinic if she desires. DISCHARGE MEDICATIONS: 1. Hydrocodone/acetaminophen 10/325 one p.o. q.4 hours p.r.n. pain. 2. Lisinopril 20 mg daily. 3. Metoprolol tartrate 25 mg p.o. b.i.d. 4. Zofran ODT 4 mg p.o. q.6 hours p.r.n. nausea. 5. Zocor 10 mg p.o. daily at bedtime. 6. Metformin 500 mg b.i.d. 7. Cyclobenzaprine 5 mg p.o. q.8 hours p.r.n. 8. Brimonidine tartrate/timolol 1 drop in the right eye twice a day. 9. Brinzolamide 1% 1 drop each eye t.i.d. 10. Lumigan 0.01% 1 drop each eye at bedtime. 11. Tylenol 650 mg p.o. q.4 hours p.r.n.
[2017-03-15 21:09] LABS: HSV 1 - DNA Negative (Negative)
[2017-03-16 13:16] LABS: West Nile Virus IgG Ab - CSF Negative (Negative); West Nile Virus IgM Ab - CSF Negative (Negative)
== END 2017-03-15 16:24 | disposition home health service (06) | DRG 98 ==
LOC: ERS 09:51 → ONC 13:30 → OBSVTOIN 13:30
PROVIDERS: ADMIT Internal Medicine; ATTEND Internal Medicine
PROC: 009U3ZX Drainage of Spinal Canal, Percutaneous Approach, Diagnostic (ICD-10-PCS; principal; 2017-03-10)
DX: G03.0 Nonpyogenic meningitis (principal); G95.89 Other specified diseases of spinal cord; E11.9 Type 2 diabetes mellitus without complications; H54.8 Legal blindness, as defined in USA; R26.89 Other abnormalities of gait and mobility; I10 Essential (primary) hypertension; E78.5 Hyperlipidemia, unspecified; E66.9 Obesity, unspecified; H40.9 Unspecified glaucoma; M19.90 Unspecified osteoarthritis, unspecified site; Z68.28 Body mass index [BMI] 28.0-28.9, adult
CPT/HCPCS: 36415; 36416; 62270; 70553; 72156; 74000; 80048; 80202; 82945; 84157; 85025; 85060; 86592; 86780; 86788; 86789; 87070; 87205; 87389; 87498; 87529; 89051; 96361; 96365; 96375; J0133; J0696; J1885; J2930; J3370; J3475; J7050; Q0162

== ENCOUNTER 2018-04-28 16:17 | Outpatient (CLI) | payer MEDICARE, MEDICAID | END 2018-04-28 16:18 | disposition home or self-care (01) | LOC: BICMAMMO 16:17 | PROVIDERS: ATTEND Internal Medicine | DX: Z12.31 Encounter for screening mammogram for malignant neoplasm of breast (principal) | CPT/HCPCS: 77063; 77067 ==

== ENCOUNTER 2018-05-31 21:38 | Inpatient (IN) | payer MEDICARE, MEDICAID ==
[2018-05-31 22:05] LABS: #Basophils 0.1 thou/uL (0.0-0.2); #Eosinphils 0.2 thou/uL (0.0-0.7); #Lymphocytes 1.6 thou/uL (1.20-3.40); #Monocytes 0.7 thou/uL (0.11-0.59); #Neutrophils 8.6 thou/uL (1.40-6.50); %Basophils 0.6 % (0.0-1.0); %Eosinophils 1.5 % (0.0-10.0); %Lymphocytes 14.7 % (21.0-51.0); %Monocytes 6.2 % (0.0-10.0); Hemoglobin 13.5 g/dL (12.0-16.0); Mean Corpuscular HGB CONC 33.5 g/dL (32.0-36.0); Mean Corpuscular Hemoglobin 30.6 pg (27.0-31.0); Mean Corpuscular Volume 91.3 fL (78.0-98.0); Mean Platelet Volume 8.3 fL (7.4-10.4); Platelet Count 261 thou/uL (130-400); RBC Distribution Width 12.2 % (11.5-14.5); White Blood Cell (WBC) Count 11.1 thou/uL (4.8-10.8)
[2018-05-31 22:10] LABS: INR-International Normal Ratio 1.1; PTT 29.1 SEC (22.9-36.1); Prothrombin Time 14.3 SEC (12.0-14.7)
[2018-05-31 22:17] LABS: ALT (SGPT) 12 U/L (8-55); AST (SGOT) 18 U/L (5-34); Albumin 4.7 g/dL (3.4-4.8); Alkaline Phosphatase 77 U/L (40-150); Anion Gap 15 mmol/L (10-20); BUN (Urea Nitrogen) 15 mg/dL (9.8-20.1); Bilirubin, Total 0.9 mg/dL (0.2-1.2); CK (CPK) 150 U/L (29-168); Calc. Creatinine Clearance 0 mL/min (70-130); Carbon Dioxide 21 mmol/L (23-31); Chloride 103 mmol/L (98-107); Estimated GFR-MDRD 62; Globulin 4.1 g/dL (2.4-3.5); Glucose 149 mg/dL (80-115); Potassium 6.3 mmol/L (3.5-5.1); Protein, Total 8.8 g/dL (6.0-8.3); Sodium 133 mmol/L (136-145)
[2018-05-31 22:39] LABS: Bilirubin Negative (Negative); Blood, Urine Negative (Negative); Clarity CLEAR (Clear); Glucose, Urine (Dipstick) Negative (Negative); Leukocyte Trace (Negative); Nitrite Positive (Negative); Protein, Urine (Dipstick) 30 mg/dL (Neg-Trace); Specific Gravity, Urine 1.012 (1.002-1.036); pH, Urine 7.5 (5.0-9.0)
[2018-05-31 22:41] LABS: Bacteria/HPF 4+ HPF (None Seen); Hyaline Casts/LPF 0-3 HYALINE CAST LPF (0-3 Hyaline); RBC/HPF 0-3 HPF (0-3); Squamous Epithelial 0-3 HPF (0-3)
[2018-05-31 22:55] LABS: CKMB 1.9 ng/mL (0-6.6); Troponin I Less than 0.010 ng/mL (< 0.028)
--- NOTE | 2018-05-31 22:55 | RAD ---
CHEST UPRIGHT PORTABLE ONE VIEW: 05/31/18 HISTORY: 63-year-old female with history of altered mental status. COMPARISON: 12/19/15. FINDINGS: Monitor leads overlie the chest. Heart size is normal. The lungs are clear. IMPRESSION: No acute intrathoracic disease. Stable from prior study 12/19/15. POS: [facility]
--- NOTE | 2018-05-31 22:57 | CT ---
BRAIN CT WITHOUT IV CONTRAST: 05/31/18 HISTORY: 63-year-old female with history of altered mental status. No focal mass or midline shift. No intra or extra-axial hemorrhage. Sinuses and mastoids are clear of acute process. IMPRESSION: No significant acute intracranial process. No mass or bleed. POS: [facility]
--- NOTE | 2018-06-01 01:52 | PDOC.FPRHP ---
- History of Present Illness Chief Complaint: AMS History of Present Illness: Ms. Aviles is a 63 year old Female who presents to the ED via EMS for AMS PT AOx0 on exam, reports gathered from medical records and EMS reports Family reports normal behavior at breakfast this morning. AMS including confusion and slurred speech beginning at 1400. EMS reports varying levels of responsiveness during ambulance ride, unable to assess strength. Stroke/sepsis workup begun in ED. - Allergies/Adverse Reactions Allergies Allergy/AdvReac Type Severity Reaction Status Date / Time No Known Allergies Allergy Verified 03/10/17 16:04 - Home Medications Medication Instructions Recorded Confirmed Type Bimatoprost [Lumigan 0.01% Ophth 1 drop EA EYE HS 03/10/17 06/01/18 History Soln] Brimonidine Tartrate/Timolol 1 drop R EYE BID 03/10/17 06/01/18 History [Combigan 0.2%-0.5% Eye Drops] Lisinopril 1 tab PO DAILY 03/10/17 06/01/18 History Metoprolol Tartrate 1 tab PO BID 03/10/17 06/01/18 History Simvastatin 20 tab PO DAILY 03/10/17 06/01/18 History metFORMIN HCl [Metformin HCl] 1 tab PO BID 03/10/17 06/01/18 History Atorvastatin Calcium [Lipitor] 20 mg PO DAILY 06/01/18 06/01/18 History - History PMHx:DMII, HLD, HTN PSHx: CS, hysterectomy, cataract sgx FHx: NC Social: unknown - Review of Systems ROS unobtainable: due to mental status - Vital signs BP: 114/54 HR: 93 RR: 24 Tmax: 101.7 Pox: 100% on RA Wt: 72.57kg - Physical Exam Constitutional: other (not oriented) HEENT: normocephalic and atraumatic, other (dry MM) Neck: supple, trachea midline Chest: no-tender to palpation Heart: RRR, normal S1/S2, no murmurs/rubs/gallops Lungs: CTAB, no respiratory distress Abdomen: soft, bowel sounds present, other (tender lower abdomen) Musculoskeletal: normal structure, ROM grossly normal Skin: no rash/lesions Heme/Lymphatic: no unusual bruising or bleeding FMR H&P: Results - Labs Result Diagrams: 06/01/18 02:48 06/01/18 02:48 Lab results: WBC 11.1 thou/uL (4.8-10.8) H 05/31/18 21:56 Hgb 13.5 g/dL (12.0-16.0) 05/31/18 21:56 Hct 40.2 % (36.0-47.0) 05/31/18 21:56 MCV 91.3 fL (78.0-98.0) 05/31/18 21:56 Plt Count 261 thou/uL (130-400) 05/31/18 21:56 Neutrophils % 77.0 % (42.0-75.0) H 05/31/18 21:56 Sodium 133 mmol/L (136-145) L 05/31/18 21:56 Potassium 6.3 mmol/L (3.5-5.1) H 05/31/18 21:56 Chloride 103 mmol/L (98-107) 05/31/18 21:56 Carbon Dioxide 21 mmol/L (23-31) L 05/31/18 21:56 BUN 15 mg/dL (9.8-20.1) 05/31/18 21:56 Creatinine 1.07 mg/dL (0.6-1.1) 05/31/18 21:56 Glucose 149 mg/dL (80-115) H 05/31/18 21:56 Lactic Acid 2.3 mmol/L (0.5-2.2) H 05/31/18 21:56 Calcium 10.0 mg/dL (7.8-10.44) 05/31/18 21:56 Total Bilirubin 0.9 mg/dL (0.2-1.2) 05/31/18 21:56 AST 18 U/L (5-34) 05/31/18 21:56 ALT 12 U/L (8-55) 05/31/18 21:56 Alkaline Phosphatase 77 U/L (40-150) 05/31/18 21:56 Creatine Kinase 150 U/L (29-168) 05/31/18 21:56 CK-MB (CK-2) 1.9 ng/mL (0-6.6) 05/31/18 21:56 Serum Total Protein 8.8 g/dL (6.0-8.3) H 05/31/18 21:56 Albumin 4.7 g/dL (3.4-4.8) 05/31/18 21:56 Urine Ketones Negative mg/dL (Negative) 05/31/18 22:25 Urine Blood Negative (Negative) 05/31/18 22:25 Urine Nitrite Positive (Negative) H 05/31/18 22:25 Ur Leukocyte Esterase Trace (Negative) H 05/31/18 22:25 Urine RBC 0-3 HPF (0-3) 05/31/18 22:25 Urine WBC 4-6 HPF (0-3) H 05/31/18 22:25 Ur Squamous Epith Cells 0-3 HPF (0-3) 05/31/18 22:25 Urine Bacteria 4+ HPF (None Seen) H 05/31/18 22:25 FMR H&P: A/P - Problem List (1) Sepsis Current Visit: Yes Status: Acute Code(s): A41.9 - SEPSIS, UNSPECIFIED ORGANISM (2) HTN (hypertension) Current Visit: Yes Status: Acute Code(s): I10 - ESSENTIAL (PRIMARY) HYPERTENSION (3) DMII (diabetes mellitus, type 2) Current Visit: Yes Status: Acute (4) HLD (hyperlipidemia) Current Visit: Yes Status: Acute Code(s): E78.5 - HYPERLIPIDEMIA, UNSPECIFIED (5) Hyperkalemia Current Visit: Yes Status: Acute Code(s): E87.5 - HYPERKALEMIA - Plan Sepsis 2/2 UTI -Elevated WBC, Febrile, tachycardic, AMS with source -LA 2.3, repeat pending -CT head neg -Adequate fluid resuscitation in ED, LR 125ml/hr -Continue broad spectrum abx, await cultures -Monitor repeat CBC, CMP -Renal US pending HTN -Hold home medications for now DMII -Continue home medications -Mild SSI HLD -Continue home medications Hyperkalemia - no EKG changes - IVF rehydration - AM CMP Code full ppx lovenox Disposition/LOS: admit to tele, treat for sepsis 2/2 UTI FMR H&P: Upper Level - Pertinent history Family reports onset of symptoms at 1400 including slurred speech, confusion, mental status changes. Additional history not not obtainable from patient 2/2 mental status. - Pertinent findings Neuro: alert and oriented x1. LABS: Lactic acid 2.3 - Plan Date/Time: 06/01/18 1242 I, Leobardo Elliott, have evaluated this patient and agree with findings/plan as outlined by recruitment internship resident. Pertinent changes/additions are listed here. 1.Sepsis 2/2 UTI On broad spectrum abx, s/p fluid resuscitation and continue IVF. Follow lactic acid levels. 2.AMS Presumed to be 2/2 #1.Will continue to monitor. CT brain negative. Consider additional w/u if not improving as infection signs improving. 3.HTN BP wnl since arriving in ED. Monitor closely 4.DM2 Monitor BG and continue home medications and SSI. ADA diet. 5.HLD Contine statine 6.Hyperkalemia Monitor on tele. Continue to follow. No new EKG changes 7.Glaucoma no acute issues Attending Addendum - Attending Addendum Date/Time: 06/01/18 2749 I personally evaluated the patient and discussed the management with team. I agree with and repeated the History, Examination, Assessment and Plan documented above with any addition or exceptions noted below. Patient altered and responds to some questions. Nonfocal exam but complaining of headache. No rigidity, will not cooperate with me to check kernig/brud. Denies any urinary symptoms. Plan for LP and change to meningitis meds.
[2018-06-01] MEDS ORDERED: Piperacillin/Tazobactam 4.5 GM VIAL ONE (03:01)
[2018-06-01] MEDS ORDERED: HumaLOG 300 UNITS/3 ML VIAL SC PRN (03:12)
[2018-06-01] MEDS ORDERED: Dextrose 50% Abboject 50 ML SYRINGE SLOW IVP PRN (03:12)
[2018-06-01] MEDS ORDERED: Dextrose 5% in Water 1,000 ML IV PRN (03:12)
[2018-06-01] MEDS ORDERED: Acetaminophen 325 MG TAB PO PRN (03:12)
[2018-06-01] MEDS ORDERED: Ondansetron PF 4 MG/2 ML Vial IVP PRN (03:12)
[2018-06-01] MEDS ORDERED: Ondansetron ODT 4 MG TAB PO PRN (03:12)
[2018-06-01 03:13] LABS: Lactic Acid 1.4 mmol/L (0.5-2.2)
[2018-06-01] MEDS: Lactated Ringer's 1,000 ML IV SCH ×3 (03:59→18:17)
[2018-06-01 05:17] LABS: #Eosinphils 0.1 thou/uL (0.0-0.7); #Lymphocytes 1.9 thou/uL (1.20-3.40); #Monocytes 0.7 thou/uL (0.11-0.59); #Neutrophils 10.1 thou/uL (1.40-6.50); %Basophils 0.2 % (0.0-1.0); %Eosinophils 0.7 % (0.0-10.0); %Lymphocytes 14.5 % (21.0-51.0); %Monocytes 5.5 % (0.0-10.0); %Neutrophils 79.1 % (42.0-75.0); Hemoglobin 12.8 g/dL (12.0-16.0); Mean Corpuscular HGB CONC 33.3 g/dL (32.0-36.0); Mean Corpuscular Hemoglobin 30.5 pg (27.0-31.0); Mean Corpuscular Volume 91.6 fL (78.0-98.0); Mean Platelet Volume 9.1 fL (7.4-10.4); Platelet Count 277 thou/uL (130-400); RBC Distribution Width 12.3 % (11.5-14.5); Red Blood Cell (RBC) Count 4.19 mill/uL (4.20-5.40); White Blood Cell (WBC) Count 12.8 thou/uL (4.8-10.8)
[2018-06-01 06:04] LABS: ALT (SGPT) 10 U/L (8-55); AST (SGOT) 16 U/L (5-34); Albumin 4.2 g/dL (3.4-4.8); Alkaline Phosphatase 75 U/L (40-150); Anion Gap 12 mmol/L (10-20); BUN (Urea Nitrogen) 13 mg/dL (9.8-20.1); Calc. Creatinine Clearance 0 mL/min (70-130); Calcium 9.6 mg/dL (7.8-10.44); Carbon Dioxide 21 mmol/L (23-31); Chloride 103 mmol/L (98-107); Estimated GFR-MDRD 79; Globulin 3.8 g/dL (2.4-3.5); Glucose 167 mg/dL (80-115); Potassium 5.1 mmol/L (3.5-5.1); Sodium 131 mmol/L (136-145)
[2018-06-01] MEDS: Enoxaparin Sodium 40 MG/0.4 ML SYRINGE SC SCH (08:40)
--- NOTE | 2018-06-01 08:52 | RAD ---
SINGLE VIEW OF THE CHEST: COMPARISON: 05/31/2018. HISTORY: Central line placement. FINDINGS: A single view of the chest shows a normal-size cardiomediastinal silhouette. A right IJ central veno us catheter is seen with its tip at the aortocaval junction. No pneumothorax is seen. There is no e vidence of consolidation, mass, or pleural effusion. Degenerative changes are seen in the spine. IMPRESSION: Status post central line placement without evidence of complication. POS: [facility]
[2018-06-01] MEDS ORDERED: Piperacillin/Tazobactam 3.375 GM in Sodium Chloride 0.9% 100 ML IVPB SCH (09:00)
[2018-06-01] MEDS: HumaLOG 300 UNITS/3 ML VIAL SC PRN (13:30)
[2018-06-01 14:53] LABS: CSF Source CSF; Clarity Clear (Clear); Tube # 4
[2018-06-01 15:00] LABS: RBC Count - Manual 108 /cumm (None Seen); WBC/NonHematics Count - Manual 3 /cumm (0-5)
[2018-06-01] MEDS: Vancomycin HCl 1 GM in Premix Bag 1 BAG IVPB SCH (15:01)
--- NOTE | 2018-06-01 15:18 | RAD ---
LUMBAR PUNCTURE WITH FLUOROSCOPIC GUIDANCE: DATE: 06/01/2018. HISTORY: Altered mental status, headache, and sepsis. FINDINGS: Informed consent obtained prior to the procedure. Preprocedural imaging demonstrates degenerative change of the lumbar spine at the L4-5 and L5-S1 leve ls. The patient was placed in the oblique prone position and the skin overlying the lumbar spine was prep ped and draped in normal sterile fashion. The skin overlying the L3-4 level was anesthetized with 1% buffered Lidocaine. With intermittent fluoroscopic guidance, a 22-gauge spinal needle was advanced into the thecal sac and removal of stylette yields clear cerebrospinal fluid. Opening pressures gabo ured at 18 cm of water. Subsequently, approximately 11-12 cc of clear CSF was obtained and sent to t he laboratory for assessment. The needle was removed. The patient tolerated the procedure well. Exposure Data: 0.8 minutes of fluoroscopic time, 180.1 mGy*^m2. IMPRESSION: Successful fluoroscopic-guided lumbar puncture as detailed above. POS: [facility]
[2018-06-01 15:25] LABS: CSF, Glucose 102 mg/dl (40-70); CSF, Protein 31 mg/dL (15-40)
[2018-06-01 16:50] LABS: Color Of CSF Supernatant COLORLESS (Colorless); Tube # 1; Unspun CSF Color COLORLESS (Colorless)
[2018-06-01] MEDS: cefTRIAXone\\ROCEPHIN 2 GM in Sodium Chloride 0.9% 100 ML IVPB SCH (16:51)
[2018-06-01] MEDS: Ampicillin 2 GM in Sodium Chloride 0.9% 100 ML IVPB SCH ×2 (16:52→20:52)
[2018-06-01] MEDS: Acyclovir Sodium 730 MG in Sodium Chloride 0.9% 100 ML IVPB SCH (18:12)
[2018-06-01] MEDS ORDERED: cefTRIAXone\\ROCEPHIN 2 GM in Sodium Chloride 0.9% 100 ML IVPB SCH (21:00)
[2018-06-01] MEDS ORDERED: Latanoprost 0.005% Ophth Soln 2.5 ml Bottle EA EYE SCH (21:30)
[2018-06-02] MEDS: Ampicillin 2 GM in Sodium Chloride 0.9% 100 ML IVPB SCH ×3 (00:49→08:32)
[2018-06-02] MEDS: Vancomycin HCl 1 GM in Premix Bag 1 BAG IVPB SCH (00:49)
[2018-06-02] MEDS: Acyclovir Sodium 730 MG in Sodium Chloride 0.9% 100 ML IVPB SCH ×3 (00:58→17:50)
[2018-06-02] MEDS: cefTRIAXone\\ROCEPHIN 2 GM in Sodium Chloride 0.9% 100 ML IVPB SCH (00:58)
[2018-06-02] MEDS: Lactated Ringer's 1,000 ML IV SCH (01:00)
[2018-06-02 07:56] LABS: #Eosinphils 0.2 thou/uL (0.0-0.7); #Lymphocytes 1.9 thou/uL (1.20-3.40); #Monocytes 0.6 thou/uL (0.11-0.59); #Neutrophils 2.7 thou/uL (1.40-6.50); %Basophils 0.6 % (0.0-1.0); %Eosinophils 3.3 % (0.0-10.0); %Lymphocytes 35.7 % (21.0-51.0); %Monocytes 11.3 % (0.0-10.0); %Neutrophils 49.1 % (42.0-75.0); Hemoglobin 12.2 g/dL (12.0-16.0); Mean Corpuscular Hemoglobin 30.7 pg (27.0-31.0); Mean Platelet Volume 8.6 fL (7.4-10.4); Platelet Count 237 thou/uL (130-400); RBC Distribution Width 12.3 % (11.5-14.5); Red Blood Cell (RBC) Count 3.97 mill/uL (4.20-5.40); White Blood Cell (WBC) Count 5.4 thou/uL (4.8-10.8)
[2018-06-02 08:17] LABS: Anion Gap 15 mmol/L (10-20); BUN (Urea Nitrogen) 9 mg/dL (9.8-20.1); Calc. Creatinine Clearance 70 mL/min (70-130); Calcium 9.5 mg/dL (7.8-10.44); Carbon Dioxide 21 mmol/L (23-31); Chloride 106 mmol/L (98-107); Estimated GFR-MDRD 69; Glucose 179 mg/dL (80-115); Potassium 4.5 mmol/L (3.5-5.1); Sodium 137 mmol/L (136-145)
[2018-06-02] MEDS: Saccharomyces boulardii 250 MG CAP PO SCH (08:33)
[2018-06-02] MEDS: Enoxaparin Sodium 40 MG/0.4 ML SYRINGE SC SCH (08:34)
[2018-06-02] MEDS ORDERED: Atorvastatin Calcium 20 MG TAB PO SCH (09:00)
--- NOTE | 2018-06-02 09:03 | PDOC.FM ---
- Subjective Subjective: BNo acute events overnight. Pt reports she is feeling better and her headache has resolved. - Objective MAR Reviewed: Yes Vital Signs & Weight: Vital Signs (12 hours) Temp Pulse Resp BP Pulse Ox 06/02/18 07:10 97.8 F 109 H 17 116/58 L 98 06/02/18 03:00 97.9 F 98 20 126/75 100 Weight Weight 76.884 kg I&O: 06/01/18 06/02/18 06/03/18 06:59 06:59 06:59 Intake Total 5720 Output Total 275 Balance 5445 Result Diagrams: 06/02/18 07:47 06/02/18 07:47 <Fracisco Barton - Last Filed: 06/02/18 09:02> - Objective Vital Signs & Weight: Vital Signs (12 hours) Temp Pulse Resp BP Pulse Ox 06/02/18 07:10 97.8 F 109 H 17 116/58 L 98 06/02/18 03:00 97.9 F 98 20 126/75 100 Weight Weight 76.884 kg I&O: 06/01/18 06/02/18 06/03/18 06:59 06:59 06:59 Intake Total 5720 Output Total 275 Balance 5445 Result Diagrams: 06/02/18 07:47 06/02/18 07:47 <Eran Ortez - Last Filed: 06/02/18 10:53> Phys Exam - Physical Examination Constitutional: NAD HEENT: PERRLA, sclera anicteric Neck: no nodes, no JVD Respiratory: no wheezing, no rales, no rhonchi, clear to auscultation bilateral Cardiovascular: RRR, no significant murmur, no rub Gastrointestinal: soft, non-tender, no distention, positive bowel sounds Musculoskeletal: no edema, pulses present Neurological: non-focal, moves all 4 limbs Psychiatric: normal affect, A&O x 3 Deviation from normal: delayed speech pattern, baseline Skin: no rash, cap refill <2 seconds <Fracisco Barton - Last Filed: 06/02/18 09:02> Dx/Plan (1) Encephalopathy acute Code(s): G93.40 - ENCEPHALOPATHY, UNSPECIFIED Status: Acute (2) Headache Code(s): R51 - HEADACHE Status: Acute (3) Sepsis Code(s): A41.9 - SEPSIS, UNSPECIFIED ORGANISM Status: Resolved (4) UTI (urinary tract infection) Status: Acute (5) HLD (hyperlipidemia) Code(s): E78.5 - HYPERLIPIDEMIA, UNSPECIFIED Status: Acute (6) HTN (hypertension) Code(s): I10 - ESSENTIAL (PRIMARY) HYPERTENSION Status: Acute (7) DMII (diabetes mellitus, type 2) Status: Acute - Plan Plan: Encephalopathy w/ headache - pt sent for LP yesterday given ams and headache - h/o viral meningitis last summer - LP results show no evidence of bacterial meningitis although this was after initiation of abx - will de-escalate abx coverage and cont rocephin for UTI coverage and await final cultures - cannot r/o viral meningitis, cont acyclovir - HSV studies pending Sepsis 2/2 UTI vs meningitis -resolved - bp stabilized - cont IV rocephin and acyclovir - RVP negative HTN -cont home meds DMII -Continue home medications -Mild SSI HLD -Continue home medications Hyperkalemia -resolved Dispo: Stable, and clinically improved since yesterday. Will await final culture results, de-escalate abx therapy and cover for UTI. Cannot entirely exclude viral meningitis, as such cont acyclovir until HSV results are available. <Fracisco Barton - Last Filed: 06/02/18 09:02> (1) Sepsis Code(s): A41.9 - SEPSIS, UNSPECIFIED ORGANISM Status: Resolved (2) HTN (hypertension) Code(s): I10 - ESSENTIAL (PRIMARY) HYPERTENSION Status: Acute (3) DMII (diabetes mellitus, type 2) Status: Acute (4) HLD (hyperlipidemia) Code(s): E78.5 - HYPERLIPIDEMIA, UNSPECIFIED Status: Acute (5) Hyperkalemia Code(s): E87.5 - HYPERKALEMIA Status: Acute <Eran Ortez - Last Filed: 06/02/18 10:53> Attending Addendum - Attending Addendum Date/Time: 06/02/18 1052 I personally evaluated the patient and discussed the management with Dr. Barton. I agree with and repeated the History, Examination, Assessment and Plan documented above with any addition or exceptions noted below. Patient with marked improvement from yesterday with resolved headache. She states that she felt similarly when she had viral encephalitis previously. Will continue plan as above. Low suspicion for bacterial meningitis in light of studies. <Eran Ortez - Last Filed: 06/02/18 10:53>
--- NOTE | 2018-06-02 10:06 | PQF ---
COSME NAPIER NICHOLAS *dorothy [id number] [facility]-263 [id number] CLINICAL DOCUMENTATION IMPROVEMENT CLARIFICATION FORM: ICD-10 Updated PLEASE DO AN ADDENDUM TO THE PROGRESS NOTE WITH ANY DOCUMENTATION UPDATES OR ADDITIONS AND CARRY THROUGH TO DC SUMMARY. THANK YOU. DATE: 06/02 ATTN: DR. Becky MARCUS / DR. Compa GARCIA Please exercise your independent, professional judgment in responding to the clarification form. Clinical indicators are provided on the bottom of this form for your review. Please check appropriate box(s): [ x ] Acute Encephalopathy: Etiology: [ ] Metabolic [ ] Toxic [ x ] Septic [ ] Unspecified [ ] Other (please specify) [ ] Other diagnosis [ ] Unable to determine For continuity of documentation, please document condition throughout progress notes and discharge summary. Thank You. CLINICAL INDICATORS - SIGNS / SYMPTOMS / LABS ER PRESENTATION 06/01 - AMS, SLURRED SPEECH, CONFUSION; PT ORIENTED TO PERSON, PT IS CONFUSED; T: 101.7 RR: 31 LACTIC ACID: 2.3 WBC 11.1 ER PHYSICIAN DIAGNOSES 06/01: SEPSIS, AMS, UTI H&P 06/01 - HX PRESENT ILLNESS: PT A/O X0 ON EXAM, AMS INCLUDING CONFUSION & SLURRED SPEECH BEGINNING AT 1400. DX/PLAN: 1) SEPSIS 2/2 UTI; 2) AMS PRESUMED TO BE 2/2 #1 PN 06/02: PHYSICAL EXAM: PSYCHIATRIC: NORMAL AFFECT, A&O X3; DELAYED SPEECH PATTERN, BASELINE DX/PLAN: 1) ENCEPHALOPATHY ACUTE, UNSPECIFIED, W/HEADACHE; 3) SEPSIS 2/2 UTI VS MENINGITIS; HYPERKALEMIA RISK FACTORS: SEPSIS UTI VIRAL MENINGITIS (CANNOT R/O, HX OF VIRAL MENINGITIS LAST SUMMER) TREATMENTS: IV ANTIBIOTICS (AMPICILLIN, VANCOMYCIN & ROCEPHIN 06/01 - PRESENT) IV ACYCLOVIR (06/01 - PRESENT) LUMBAR PUNCTURE (06/01) THANK YOU! Ava (This form is maintained as a part of the permanent medical record) 2014 [employer]. All Rights Reserved Ava Pearson RN, BSN [email or web address] Office: [phone] [facility]
[2018-06-02 13:20] LABS: Vancomycin, Trough 16.7 ug/mL
[2018-06-02] MEDS ORDERED: Timolol 0.5% Ophth Soln 5 ml Bottle R EYE SCH (15:00)
[2018-06-02] MEDS ORDERED: Brimonidine Tartrate 0.2% Ophth Soln 5 ml Bottle R EYE SCH (15:00)
[2018-06-02] MEDS: HumaLOG 300 UNITS/3 ML VIAL SC PRN (18:17)
[2018-06-02] MEDS ORDERED: Non-Formulary Item 1 EACH (Bimatoprost [Lumigan 0.01% Ophth Soln] 1 DROP) EA EYE SCH (21:00)
[2018-06-02] MEDS ORDERED: Latanoprost 0.005% Ophth Soln 2.5 ml Bottle EA EYE SCH (21:00)
[2018-06-02] MEDS: Brimonidine Tartrate 0.2% Ophth Soln 5 ml Bottle R EYE SCH (21:12)
[2018-06-02] MEDS: Metoprolol Tartrate 25 MG TAB PO SCH (21:13)
[2018-06-02] MEDS: metFORMIN 500 MG TAB PO SCH (21:13)
[2018-06-02] MEDS: Timolol 0.5% Ophth Soln 5 ml Bottle R EYE SCH (21:14)
[2018-06-03] MEDS ORDERED: cefTRIAXone\\ROCEPHIN 1 GM in Sodium Chloride 0.9% 100 ML IVPB SCH (02:00)
[2018-06-03] MEDS: Acyclovir Sodium 730 MG in Sodium Chloride 0.9% 100 ML IVPB SCH ×3 (02:17→17:22)
[2018-06-03 05:24] LABS: #Eosinphils 0.5 thou/uL (0.0-0.7); #Lymphocytes 2.4 thou/uL (1.20-3.40); #Monocytes 0.6 thou/uL (0.11-0.59); #Neutrophils 2.2 thou/uL (1.40-6.50); %Basophils 0.9 % (0.0-1.0); %Lymphocytes 42.5 % (21.0-51.0); %Monocytes 10.2 % (0.0-10.0); %Neutrophils 38.4 % (42.0-75.0); Hemoglobin 11.8 g/dL (12.0-16.0); Mean Corpuscular HGB CONC 32.9 g/dL (32.0-36.0); Mean Corpuscular Hemoglobin 30.4 pg (27.0-31.0); Mean Corpuscular Volume 92.5 fL (78.0-98.0); Mean Platelet Volume 8.8 fL (7.4-10.4); Platelet Count 232 thou/uL (130-400); RBC Distribution Width 12.3 % (11.5-14.5); Red Blood Cell (RBC) Count 3.88 mill/uL (4.20-5.40); White Blood Cell (WBC) Count 5.7 thou/uL (4.8-10.8)
[2018-06-03 05:40] LABS: Anion Gap 15 mmol/L (10-20); BUN (Urea Nitrogen) 11 mg/dL (9.8-20.1); Calc. Creatinine Clearance 70 mL/min (70-130); Calcium 9.5 mg/dL (7.8-10.44); Carbon Dioxide 20 mmol/L (23-31); Chloride 105 mmol/L (98-107); Estimated GFR-MDRD 68; Glucose 191 mg/dL (80-115); Potassium 4.6 mmol/L (3.5-5.1); Sodium 135 mmol/L (136-145)
[2018-06-03] MEDS: Enoxaparin Sodium 40 MG/0.4 ML SYRINGE SC SCH (09:00)
[2018-06-03] MEDS ORDERED: Ketorolac Tromethamine 30 MG/ML VIAL IVP SCH (09:00)
[2018-06-03] MEDS: Metoprolol Tartrate 25 MG TAB PO SCH (09:00)
[2018-06-03] MEDS: Saccharomyces boulardii 250 MG CAP PO SCH (09:00)
[2018-06-03] MEDS ORDERED: Lisinopril 20 MG TAB PO SCH (09:00)
[2018-06-03] MEDS: metFORMIN 500 MG TAB PO SCH (09:00)
[2018-06-03] MEDS: Brimonidine Tartrate 0.2% Ophth Soln 5 ml Bottle R EYE SCH (09:01)
[2018-06-03] MEDS: Timolol 0.5% Ophth Soln 5 ml Bottle R EYE SCH (09:01)
--- NOTE | 2018-06-03 09:06 | PDOC.FM ---
- Subjective Subjective: RANDI overnight. Pt reports she is feeling better today than yesterday, but does report it feels "like her head wants to hurt." Otherwise no complaints. - Objective Vital Signs & Weight: Vital Signs (12 hours) Temp Pulse Resp BP Pulse Ox 06/03/18 07:30 98 06/03/18 07:29 98.9 F 83 17 154/70 H 98 06/03/18 03:55 98.3 F 97 18 129/74 98 Weight Weight 76.884 kg I&O: 06/02/18 06/03/18 06/04/18 06:59 06:59 06:59 Intake Total 5720 1040 Output Total 275 1600 Balance 5445 -560 Result Diagrams: 06/03/18 05:01 06/03/18 05:01 <Frcaisco Barton - Last Filed: 06/03/18 09:00> - Objective Vital Signs & Weight: Vital Signs (12 hours) Temp Pulse Resp BP Pulse Ox 06/03/18 09:01 83 06/03/18 07:30 98 06/03/18 07:29 98.9 F 83 17 154/70 H 98 06/03/18 03:55 98.3 F 97 18 129/74 98 Weight Weight 76.884 kg I&O: 06/02/18 06/03/18 06/04/18 06:59 06:59 06:59 Intake Total 5720 1040 Output Total 275 1600 Balance 5445 -014 Result Diagrams: 06/03/18 05:01 06/03/18 05:01 <Eran Ortez - Last Filed: 06/03/18 12:00> Phys Exam - Physical Examination Constitutional: NAD HEENT: PERRLA, sclera anicteric Respiratory: no wheezing, no rales, no rhonchi, clear to auscultation bilateral Cardiovascular: RRR, no significant murmur Gastrointestinal: soft, non-tender, no distention, positive bowel sounds Musculoskeletal: no edema, pulses present Neurological: non-focal, normal sensation, moves all 4 limbs Skin: cap refill <2 seconds <Fracisco Barton - Last Filed: 06/03/18 09:00> Dx/Plan (1) Encephalopathy acute Code(s): G93.40 - ENCEPHALOPATHY, UNSPECIFIED Status: Acute (2) Headache Code(s): R51 - HEADACHE Status: Acute (3) Sepsis Code(s): A41.9 - SEPSIS, UNSPECIFIED ORGANISM Status: Resolved (4) UTI (urinary tract infection) Status: Acute (5) HLD (hyperlipidemia) Code(s): E78.5 - HYPERLIPIDEMIA, UNSPECIFIED Status: Acute (6) HTN (hypertension) Code(s): I10 - ESSENTIAL (PRIMARY) HYPERTENSION Status: Acute (7) DMII (diabetes mellitus, type 2) Status: Acute - Plan Plan: Encephalopathy w/ headache likely 2/2 sepsis from UTI: resolved - cont caitlin boss switch to PO abx for UTI coverage - urine culture grew E coli, sensitive to rocephin Sepsis 2/2 UTI vs meningitis -meningitis clinically kameron given rapid recovery and negative LP findings - caitlin switch to oral abx and plan for DC to home with OP f/u today HTN -cont home meds DMII -Continue home medications -Mild SSI HLD -Continue home medications Hyperkalemia -resolved Headache: - toradol X1 and assess for symptomatic response - appears clinically well and improved from yesterday, extremely low suspicion for viral or bacterial meningitis - stop acyclovir today Dispo: Stable, and clinically improved since yesterday. Urine cultures growing E coli sensitive to rocephin. Cont abx and transition to oral. Extremely low clinical suspicion for meningitis, will DC acyclovir and f/u with pending cultures. Toradol X1 IV for headache which is likely a separate issue. <Fracisco Barton - Last Filed: 06/03/18 09:00> (1) Sepsis Code(s): A41.9 - SEPSIS, UNSPECIFIED ORGANISM Status: Resolved (2) HTN (hypertension) Code(s): I10 - ESSENTIAL (PRIMARY) HYPERTENSION Status: Acute (3) DMII (diabetes mellitus, type 2) Status: Acute (4) HLD (hyperlipidemia) Code(s): E78.5 - HYPERLIPIDEMIA, UNSPECIFIED Status: Acute (5) Hyperkalemia Code(s): E87.5 - HYPERKALEMIA Status: Acute <Eran Ortez - Last Filed: 06/03/18 12:00> Attending Addendum - Attending Addendum Date/Time: 06/03/18 1159 I personally evaluated the patient and discussed the management with Dr. Barton. I agree with and repeated the History, Examination, Assessment and Plan documented above with any addition or exceptions noted below. Patient with no headache this AM and denies cp/sob/n/v/f/c. States she is doing better. Exam is nonfocal and reassuring. No focal deficits, CN II-XII except preexisting strabismus, MAEW. Labs and imaging reviewed. Likely contaminant in BC. Continue rocephin and acyclovir. Await HSV and pending that will pull CVC and switch all to PO meds. <Eran Ortez - Last Filed: 06/03/18 12:00>
[2018-06-03 15:59] VITALS: BP 120/58; TEMP 98
[2018-06-03] MEDS ORDERED: Atorvastatin Calcium 10 MG TAB PO SCH (21:00)
== END 2018-06-03 19:03 | disposition home or self-care (01) | DRG 871 ==
LOC: ERS 21:38 → 2NO 06-01 00:45
PROVIDERS: ADMIT Student in an Organized Health Care Education/Training Program; ATTEND Student in an Organized Health Care Education/Training Program
PROC: 009U3ZX Drainage of Spinal Canal, Percutaneous Approach, Diagnostic (ICD-10-PCS; principal; 2018-06-01)
PROC: B01B1ZZ Fluoroscopy of Spinal Cord using Low Osmolar Contrast (ICD-10-PCS; 2018-06-01)
DX: A41.51 Sepsis due to Escherichia coli [E. coli] (principal); G93.41 Metabolic encephalopathy; I10 Essential (primary) hypertension; E11.9 Type 2 diabetes mellitus without complications; E78.5 Hyperlipidemia, unspecified; E87.5 Hyperkalemia; H40.9 Unspecified glaucoma
CPT/HCPCS: 36415; 36416; 36556; 62270; 70450; 71045; 80048; 80053; 80202; 81003; 81015; 82550; 82553; 82945; 83605; 84157; 84484; 85025; 85610; 85730; 86592; 87040; 87070; 87077; 87086; 87186; 87205; 87255; 87633; 89051; 93005; 96365; 96366; 96375; A4353; G8978-GP-CM; G8979-GP-CK; G8987-GO-CK; G8988-GO-CI; J0133; J0290; J0696; J1650; J1885; J2543; J3370; J7050